=== PATIENT | male | born 2000 | race Caucasian/White ===

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

== ENCOUNTER 2025-01-11 10:38 | Observation (INO) ==
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
--- NOTE | 2025-01-11 15:30 | Surgery Consultation ---
Date of Consultation January 11, 2025 Assessment & Plan (1) Irreducible prolapsed hemorrhoids: (2) Partial rectal prolapse: ED reportedly was able to reduce a the rectal prolapse after applying sugar to the area. Internal hemorrhoid remains prolapsed and is becoming ischemic. Administered Morphine 4 mg, warm compresses and attempted bedside reduction in the ED. Pt unable to tolerate and needs urgent manual reduction. Apply moist warm compress to the area If not reduced by the time the OR is available, will proceed to the OR for manual reduction. The details of the procedure have been explained to him including the risks and benefits. He expressed understanding of this explanation and all of his qu estions were answered. Consent was obtained. History of Present Illness Reason for Consultation: rectal prolapse History of Present Illness 24M with no significant PMHx who presented to the ED with rectal prolapse. States he was lifting weights this am after which he noted the rectal prolapse. He has had this in the past where it usually resolves on its own but this time it did not and he developed pain. He went to urgent care for evaluation where they sent him straight here for further evaluation. In the ED he is HD stable and afebrile. Allergies Allergy/AdvReac Type Severity Reaction Status Date / Time amoxicillin Allergy Severe UNKNOWN Unverified 05/19/17 08:12 Corticosteroids Allergy Unknown unk Unverified 02/24/17 16:49 (Glucocorticoids) tree nut Allergy Unknown SHORTNESS Verified 05/19/17 08:12 OF BREATH Patient History Medical History Contusion of face Closed head injury Family History Other No pertinent family history Social History Smoking Status: Current some day smoker Tobacco Type: E-cigarettes / Vaping Preferred Language: Urdu marital status: Single current occupational status: employed Feels Safe at Home: Yes Review of Systems Review of Systems: All systems reviewed & are unremarkable except as noted in HPI & below Physical Exam Constitutional: healthy appearing; not ill appearing, not in distress and not diaphoretic Respiratory: normal respiratory effort; no respiratory distress, no labored breathing and does not use accessory muscles Cardiovascular: Rate/Rhythm: regular rate; not tachycardic Extremities: no edema Gastrointestinal (Abdomen): protrusion of rectal tissue from anus Psychiatric: Orientation: alert and oriented x 3 Results & Data Vital Signs (Past 12 Hours) Vital Signs Temp Pulse Pulse Resp BP BP Pulse Ox 01/11/25 13:56 63 16 135/82 96 01/11/25 10:59 65 16 137/71 99 01/11/25 10:42 36.6 C 95 H 14 147/88 H 96 O2 Del Method 01/11/25 13:56 Room Air 01/11/25 10:59 Room Air 01/11/25 10:42 Room Air Results Complete Blood Count Results: RBC 5.03 M/uL (4.7-6.1) 05/19/17 WBC 10.16 K/uL (4.8-10.8) 05/19/17 Hgb 15.3 g/dL (14.0-18.0) 05/19/17 Hct 44.2 % (42-52) 05/19/17 Plt Count 231 K/uL (130-400) 05/19/17 Results CMP Results: Sodium 141 mmol/L (136-145) 05/19/17 Potassium 4.1 mmol/L (3.5-5.1) 05/19/17 Chloride 105 mmol/L (98-107) 05/19/17 Carbon Dioxide 29 mmol/L (21-32) 05/19/17 Anion Gap 7.0 mmol/L (3-11) 05/19/17 BUN 21 mg/dl (7-18) H 05/19/17 Creatinine 1.16 mg/dl (0.60-1.40) 05/19/17 Est GFR ( Amer) 106.0 05/19/17 Est GFR (Non-Af Amer) 91.4 05/19/17 BUN/Creatinine Ratio 18.2 (10-20) 05/19/17 Calcium 9.3 mg/dl (8.5-10.1) 05/19/17 Total Bilirubin 0.3 mg/dl (0.2-1) 05/19/17 AST 20 U/L (15-37) 05/19/17 ALT 32 U/L (12-78) 05/19/17 Alkaline Phosphatase 85 U/L (45-117) 05/19/17 Total Protein 8.0 gm/dl (6.4-8.2) 05/19/17 Albumin 4.3 gm/dl (3.4-5.0) 05/19/17 Globulin 3.7 gm/dl (2.5-4.0) 05/19/17 Albumin/Globulin Ratio 1.2 (0.9-2) 05/19/17 PG Care Time/CCT Total # of Minutes Spent Total Time Spent with Patient: Total time spent is greater than 50% in coordination of care (as documented) at patient's floor/unit and/or counseling patient: Coding Level of Care Code 11392 OFFICE CONSULT LVL Diagnoses Irreducible prolapsed hemorrhoids K64.3 Partial rectal prolapse K62.3
[2025-01-11] MEDS: MoRPHine SULFATE 2 MG/ML CARP IV STA ×2 (16:00→16:09)
[2025-01-11] MEDS ORDERED: ONDANSETRON INJ 2 MG/ML 2 ML VIAL IV PRN ×2 (17:45→18:22)
[2025-01-11] MEDS ORDERED: HYDROmorphone INJ 0.5 MG/0.5 ML SYR IV PRN ×2 (17:45→19:00)
[2025-01-11] MEDS: SODIUM CHLORIDE 0.9% 1,000 ML IV SCH (18:00)
[2025-01-11] MEDS ORDERED: ROCURONIUM BROMIDE 10 MG/ML 5 ML VIAL IV ONE (18:07)
[2025-01-11] MEDS ORDERED: MIDAZOLAM HCL 1 MG/ML 2ML VIAL ONE (18:07)
[2025-01-11] MEDS ORDERED: DEXAMETHASONE SOD INJ 4 MG/ML VIAL ONE (18:07)
[2025-01-11] MEDS ORDERED: PROPOFOL IV EMULSION 10 MG/ML 20 ML VIAL IV ONE (18:07)
[2025-01-11] MEDS ORDERED: SUCCINYLCHOLINE CHLORIDE 20 MG/ML 10 ML VIAL IV ONE (18:07)
[2025-01-11] MEDS ORDERED: ONDANSETRON INJ 2 MG/ML 2 ML VIAL ONE (18:07)
[2025-01-11] MEDS ORDERED: ATROPINE SULFATE 0.1 MG/ML 10ML SYR IV PRN (18:22)
--- NOTE | 2025-01-11 18:22 | Anesthesiology Consultation ---
Date of Service January 11, 2025 Assessment & Plan (1) Encounter for pre-operative examination: Chart Review Chart Review: Acceptable Risk for Surgery and Patient NOT seen in Pre Admission Testing Consults Requested none History Surgery Operation Date: 01/11/25 19:00 Proposed Procedures p Rectal Surgery - Jonah Agrawal DO Height/Weight Height: 5 ft 11 in Weight: 89.3 kg Allergies Allergy/AdvReac Type Severity Reaction Status Date / Time amoxicillin Allergy Severe UNKNOWN Unverified 05/19/17 08:12 Corticosteroids Allergy Unknown unk Unverified 02/24/17 16:49 (Glucocorticoids) tree nut Allergy Unknown SHORTNESS Verified 05/19/17 08:12 OF BREATH Medications Active Medications Generic Name Dose Route Start Last Admin Trade Name Freq PRN Reason Stop Dose Admin Sodium Chloride 1,000 mls @ 100 mls/hr 01/11/25 17:45 01/11/25 18:00 Nss IV 01/14/25 17:44 100 mls/hr .Q10H ZAKIYA Administration Past Medical History Medical History Contusion of face Closed head injury Past Family History Family History Other No pertinent family history Social History Smoking Status: Current some day smoker Physical Exam Vital Signs Last Vital Signs Temp 98.4 F 01/11/25 17:45 Pulse 48 L 01/11/25 17:45 Resp 12 01/11/25 17:45 BP 122/69 01/11/25 17:45 Pulse Ox 96 01/11/25 17:45 O2 Del Method Room Air 01/11/25 17:45
[2025-01-11] MEDS: HYDROmorphone INJ 0.5 MG/0.5 ML SYR IV PRN (18:30)
[2025-01-11] MEDS: metroNIDAZOLE 500 MG/100 ML BAG IV ONE (19:22)
[2025-01-11] MEDS ORDERED: LIDOCAINE 2% 2 ML VIAL/AMP(20MG/ML) INFIL ONE (20:11)
[2025-01-11] MEDS: THROMBIN FOR SOLN 20000 UNIT KIT ONE (20:36)
[2025-01-11] MEDS: GELATIN SPONGE SZ 100 ONE (20:36)
--- NOTE | 2025-01-11 20:49 | Operative Report ---
PG Post Operative Report Pre & Post Diagnosis Operation Date: 01/11/25 19:00 Pre-Op Diagnosis: Prolapsed external hemorrhoids Post-Op Diagnosis: Prolapsed external hemorrhoids I identified the patient and participated in the time-out.: Yes Procedure Operation Date: 01/11/25 19:00 Actual Procedures p Hemorrhoid reduction under anesthesia (Not Applicable) - Jonah Graf DO Surgeon Jonah Agrawal DO Ground Surveillance Systems Operator No surgical scrub tech Estimated Blood Loss 10 Findings See Below Prolapsed internal hemorrhoids, thrombosed external hemorrhoids Specimens None Complications No immediate complications Indications Prolapsed internal hemorrhoids causing ischemia Description of Procedure The patient was brought back to the operating room and placed on the OR table in lithotomy position. He had been connected to cardiac and oxygen monitoring. Supplemental O2 was provided. SCDs were applied to bilateral lower extremities. The patient was administered general anesthesia and a secure airway was established. The perianal and rectal area were prepped and draped in typical sterile fashion and a timeout was conducted. Prolapsed internal hemorrhoids were identified with the onset of ischemia and superficial necrosis of the rectal tissue. Enlarged and edematous external hemorrhoids circumferentially. The internal prolapsing hemorrhoids were manually reduced. An incision was made over 2 areas of both the right and left external hemorrhoids of the anus to evacuate multiple blood clots relieving the thrombosed external hemorrhoids. Cautery was used at one of the incision sites of the external hemorrhoid to help control bleeding. Otherwise hemostasis was achieved using pressure. Gelfoam dipped in saline and surgical lubricant were inserted to keep the internal hemorrhoids reduced. The area was dressed with gauze and an ABD. The patient tolerated the procedure well. He was taken out of lithotomy position and surgical briefs were applied. He was awakened from anesthesia, the secure airway was removed and he was transferred recovery in stable condition. I attest to the content of the Intraoperative Record and any orders documented therein. Any exceptions are noted below.
--- NOTE | 2025-01-11 21:21 | Anesthesiology Progress Note ---
Date of Service January 11, 2025 Anesthesia Post Procedure Vital Signs Vital Signs: Temp Pulse Pulse Pulse Resp BP BP 01/11/25 21:10 48 L 12 120/83 01/11/25 20:57 98.1 F 83 16 153/80 H 01/11/25 17:45 01/11/25 17:45 01/11/25 17:45 98.4 F 48 L 12 122/69 01/11/25 17:23 45 L 20 154/85 H 01/11/25 16:09 85 20 170/93 H 01/11/25 13:56 63 16 135/82 01/11/25 10:59 65 16 137/71 01/11/25 10:42 97.9 F 95 H 14 147/88 H Pulse Ox Pulse Ox O2 Del Method O2 Del Method O2 Flow Rate 01/11/25 21:10 99 Nasal Cannula 2 01/11/25 20:57 100 Nasal Cannula 2 01/11/25 17:45 Room Air 01/11/25 17:45 96 Room Air 01/11/25 17:45 96 Room Air 01/11/25 17:23 97 Room Air 01/11/25 16:09 97 Room Air 01/11/25 13:56 96 Room Air 01/11/25 10:59 99 Room Air 01/11/25 10:42 96 Room Air Pain Intensity Rectal: Pain Intensity: 6 Transfer of Care Handoff Completed per policy Notes Mental Status: alert / awake / arousable and participated in evaluation Patient Amnestic to Procedure: Yes Nausea / Vomiting: adequately controlled Pain: adequately controlled Airway Patency, RR, SpO2: stable & adequate BP & HR: stable & adequate Hydration State: stable & adequate Anesthetic Complications: no major complications apparent and Pt Satisfied with anesthetic care
[2025-01-12 07:25] VITALS: BP 111/67; PULSE 67; RESP 14; TEMP 97.9; O2SAT 98
[2025-01-12] MEDS: ACETAMINOPHEN 1,000 MG/100 ML VIAL IV PRN (07:31)
[2025-01-12 08:16] LABS: Hematocrit (blood only) 50.3 % (42.0-52.0); Hemoglobin 16.7 g/dl (14.0-18.0); Immature Granulocytes # (auto) 0.04 K/uL (0.01-0.20); Immature Granulocytes % (auto) 0.4 %; Mean Corpuscular Hemoglobin 30.5 pg (25.0-34.0); Mean Corpuscular Volume 92.0 fL (80.0-100.0); Platelet Count 233 K/uL (130-400); RDW Standard Deviation 42.9 fL (36.4-46.3); Red Blood Count 5.47 M/uL (4.70-6.10); White Blood Count 10.62 K/ul (4.8-10.8)
[2025-01-12 08:40] LABS: Anion Gap 7.0 (3-11); Blood Urea Nitrogen 11.0 mg/dl (6-23); Calcium 9.0 mg/dl (8.6-10.3); Carbon Dioxide 31.0 mmol/L (21-32); Chloride 100.0 mmol/L (98-107); Creatinine Clr Calc Pharmacy 110.4 ml/min; Glucose 82.0 mg/dl (70-99(Fasting)); Potassium 4.4 mmol/L (3.5-5.1); Sodium 138.0 mmol/L (136-145)
--- NOTE | 2025-01-12 09:44 | Surgery Progress Note ---
<Statement entered by Jonah Agrawal, DO - 01/12/25 15:54> I have seen and examined this patient this am. I agree with this plan. Date of Service January 12, 2025 Assessment & Plan (1) Irreducible prolapsed hemorrhoids: Plan: Patient is POD #1 from hemorrhoid reduction under anesthesia for prolapsed internal hemorrhoids and thrombosed external hemorrhoids by Dr. Fowler - Patient doing well this morning, still having some pain and discomfort mostly positional, states pain medication is helping - Patient states that he would like to try to go home today. He was educated on performing daily sitz bath's with warm water. Was also instructed to continue [id number] stool softeners (MiraLAX or Senna) to avoid constipation. -He can cover his surgical sites for comfort/drainage with gauze and ABD pads if needed. -Patient stable for discharge home. He will follow up with Dr. Agrawal this week in the office for a wound check (2) Partial rectal prolapse: Admission and Anticipated Discharge Date Admission Date: January 11, 2025 Subjective Patient underwent Hemorrhoid reduction under anesthesia for prolapsed internal hemorrhoids and thrombosed external hemorrhoids Patient overnight post-operatively with no issues States this morning he is still having some discomfort however has improved Tolerating diet VSS and afebrile Physical Exam Constitutional: WD/WN, vitals as above Respiratory: normal respiratory effort, lungs clear to auscultation Cardiovascular: RRR, no murmur, no edema Gastrointestinal (Abdomen): normal bowel sounds, soft, nontender, no hepatosplenomegaly Rectal Exam: + rectal tenderness Some strikethrough through dressing. No active bleeding/drainage Surgical dressing removed from rectal area, patient tender over area Psychiatric: A+Ox3, euthymic affect Results & Data Vital Signs (Past 12 Hours) Vital Signs Temp Pulse Resp BP Pulse Ox O2 Del Method 01/12/25 07:23 36.6 C 67 14 111/67 98 Room Air 01/12/25 04:45 36.7 C 72 16 125/68 94 Room Air 01/12/25 00:45 36.6 C 54 L 15 148/62 H 93 Room Air 01/11/25 23:45 36.6 C 57 L 16 154/64 H 94 Room Air 01/11/25 22:45 36.8 C 96 H 18 170/77 H 95 Room Air 01/11/25 22:15 36.8 C 88 16 145/90 H 93 Room Air 01/11/25 21:45 36.8 C 50 L 14 118/64 97 Room Air PG Care Time/CCT Total # of Minutes Spent Total Time Spent with Patient: Total time spent is greater than 50% in coordination of care (as documented) at patient's floor/unit and/or counseling patient: [place] [address] Post Operative Follow-Up Patient Type Established History Problem Focused Exam Problem Focused Medical Decision Making Straight Forward Diagnoses Irreducible prolapsed hemorrhoids K64.3 Partial rectal prolapse K62.3
== END 2025-01-12 11:49 | disposition home or self-care (01) ==
LOC: 3W 10:38 → ED 10:38 → 3W 17:23